=== PATIENT | male | born 1970 | race Two or more races ===

== ENCOUNTER 2017-01-31 17:27 | Emergency (ER) | payer SELFPAY ==
[~2017-01-31] VITALS: Ht 182.9 cm; Wt 69.1 kg
[2017-01-31 17:31] VITALS: BP 124/78
[2017-01-31] MEDS ORDERED: BACITRACIN ZINC OINT 500U/GM, 0.9 GM ONE (18:33)
== END 2017-01-31 19:27 | disposition home or self-care (01) ==
LOC: ED 19:00
DX: S60.511A Abrasion of right hand, initial encounter (principal); M25.552 Pain in left hip; V19.9XXA Pedal cyclist (driver) (passenger) injured in unspecified traffic accident, initial encounter; Y93.55 Activity, bike riding; Y92.89 Other specified places as the place of occurrence of the external cause; Y99.8 Other external cause status
CPT/HCPCS: 99284